=== PATIENT | female | born 1950 | race Caucasian/White ===

== ENCOUNTER → 2017-01-30 | Outpatient (CLI) | payer MEDICARE, OTHER ==
[~2017-01-30] MED LIST: ASPIRIN 81M81 MG/TA2 PO; CATAPRES 0.1MG0.1 MG PO; LOTENSIN 1010 MG/TAB PO; LOTRISONE 0.05%1 CRE TP; MULTI VITAMINS1 TAB PO; NITROSTAT0.4 MG/TAB SL; NORCO 325 MG-51 TAB PO; NORVASC 5MG5 MG/TAB PO; PREVACID 30MG30 M1 PO; UNABLE; VALTREX 50500 MG/TAB PO; ZIAC 10/6.25M1 UDTAB PO; ZITHROMAX 250M250 MG PO; ZOLOFT 100MG100 MG PO
== END ==
LOC: MC.RAD 10:00
DX: Z12.31 Encounter for screening mammogram for malignant neoplasm of breast (principal)

== ENCOUNTER → 2018-02-12 | Outpatient (CLI) | payer MEDICARE, OTHER | LOC: MC.RAD 13:40 | DX: Z12.31 Encounter for screening mammogram for malignant neoplasm of breast (principal) ==

== ENCOUNTER → 2019-03-05 | Outpatient (CLI) | payer MEDICARE, OTHER | LOC: MC.RAD 11:30 | DX: Z12.31 Encounter for screening mammogram for malignant neoplasm of breast (principal) ==

== ENCOUNTER → 2020-04-13 | Outpatient (CLI) | payer MEDICARE | LOC: MC.RAD 03-24 11:45 | DX: Z12.31 Encounter for screening mammogram for malignant neoplasm of breast (principal) ==

== ENCOUNTER → 2021-06-09 | Outpatient (CLI) | payer MEDICARE, OTHER | LOC: MC.RAD 04-22 08:15 | DX: Z12.31 Encounter for screening mammogram for malignant neoplasm of breast (principal) ==

== ENCOUNTER → 2022-09-15 | Outpatient (CLI) | payer MEDICARE, OTHER | LOC: MC.RAD 07:30 | DX: Z12.31 Encounter for screening mammogram for malignant neoplasm of breast (principal) ==

== ENCOUNTER → 2023-11-14 | Outpatient (CLI) | payer MEDICARE | LOC: MC.RAD 10:15 | DX: Z12.31 Encounter for screening mammogram for malignant neoplasm of breast (principal) ==